=== PATIENT | female | born 1945 | race Caucasian/White ===

== ENCOUNTER 2024-01-31 13:26 | Emergency (ER) | payer MEDICARE, SELFPAY ==
[2024-01-31 13:28] VITALS: BP 208/90; PULSE 69; RESP 16; TEMP 36.9; O2SAT 98; BMI 24.1
--- OUTSIDE RECORDS SUMMARY | 2024-01-31 14:17 | XMS_ITS | Continuity of Care Document ---
Author Organization 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 - Active Needs OV for future refills or can get from PCP losartan 100 mg tablet take 1 tablet by oral route every day 100 MG - Active simvastatin 20 mg tablet take 1 tablet by oral route every day in the evening 20 MG - Active PreserVision AREDS 14,320 unit-226 mg-200 unit capsule take 1 tablespoon by oral route every day 1 tablespoon - Active Procedures Procedure Date Colonoscopy Flex; W/remov Les- 23 Ugi Endo; W/bx 1/mx Level Iv-surg Path Gross/micro 23 Ugi Endo; W/bx 1/mx Level Iv-surg Path Gross/micro 22 Colonoscopy Flex; W/remov Les- Level Iv-surg Path Gross/micro 20 Colonoscopy Flex; W/remov Les- 16 Colonoscopy Flex; W/bx 1/mx Level Iv-surg Path Gross/micro 16 Colonoscopy Flex; W/remov Les- 15 Colonoscopy W/Submucosal Injection Level Iv-surg Path Gross/micro 15 Colonoscopy Flex; W/remov Les- 10 Level Iv-surg Path Gross/micro 10 Level Iv-surg Path Gross/micro 10 Level Iv-surg Path Gross/micro 10 Colonoscopy Flex; W/remov Les- 07 Level Iv-surg Path Gross/micro 07 Level Iv-surg Path Gross/micro 07 Level Iv-surg Path Gross/micro 07 Level Iv-surg Path Gross/micro 07 Advance Directives Directive Yes / No Effective Date File Name No Information Encounters Encounter Description Practice Location Reason(s) For Visit Diagnoses Date Provider Providers Copied on Encounter [facility], [address] [address], [place], [place], [address], [place] tel:[phone] [facility] No Information 4 Ramiro Sanchez. [address], [place], [place], [id number] , [place]. tel: [phone] [facility], [address] [address], [place], [address], [place] tel:[phone] [facility] Epigastric pain 4 Jim Tanner. [address], [place], [place], [address] , [place]. tel: [phone] [facility], [address] [address], [place], [place], [address], [place] tel:[phone] [facility] No Information 3 Jim Tanner. [address] [facility] [address], [place], [place], [address] , [place]. tel: [phone] [facility], [address] [address], [place], [place], [address], [place] tel:[phone] [facility] GI Symptoms or Concerns (chief complaint) 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Family history of gastric cancerColorectal polypsDiverticulo sisEncounter for screening for malignant neoplasm of colonPersonal history of colonic polypsBenign neoplasm of ascending colonBarrett's esophagus without dysplasiaBenign neoplasm of ascending colon 3 Jim Tanner. [address] [facility] [address], [place], [place], [address] , [place]. tel:[phone] Referring Provider: Referral Self, USE FOR SELF REFERRALS. [facility], [address] [address], [place], [address], [place] tel:[phone] [facility] No Information 3 Ramiro Sanchez. [address] [facility] [address], [place], [place], [address] , [place]. tel:[phone] [facility], [address] [address], [place], [address], [place] tel:[phone] [facility] GI Symptoms or Concerns (chief complaint) Chronic anemiaEsophagitis 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Anemia, unspecifiedBarret t's esophagus without dysplasia 2 Jim Tanner. [address] [facility] [facility] [address], [place], [place], [address] , [place]. tel:[phone] Referring Provider: Adriana Santa MD F, [address], [place], [address]. tel:[phone] [facility], [address] [address], [place], [address], [place] tel:[phone] [facility] No Information 2 Ramiro Sanchez. [address] [facility] [address], [place], [place], [address] , [place]. tel: [phone] [facility], [address] [address], [place], [address], [place] tel:[phone] [facility] Colorectal polypsPersonal history of colonic polypsDiverticulo sis of colon without diverticulitisEnc ounter for screening for malignant neoplasm of colonBenign neoplasm of ascending colonBenign neoplasm of transverse colonBenign neoplasm of transverse colonBenign neoplasm of ascending colonPersonal history of colonic polyps 0 Shruti Paula. [address] [facility], [facility] [address], [place], [place], [address] , [place]. [phone] Referring Provider: [place] R, [address] [place], [address]. tel:[phone] [facility], [address] [address], [place], [address], [place] tel:[phone] [facility] No Information 0 Srhuti Paula. [address] [facility] [facility] [address], [facility] [address], [place], [place], [address] , [place]. tel:[phone] [facility], [address] [address], [place], [address], [place] tel:[phone] [facility] Colon polypsPersonal history of colonic polypsEncounter for screening for malignant neoplasm of colonBenign neoplasm of rectumPolyp of colonPersonal history of colonic polyps 6 Shruti Paula. [address] [facility] [facility], [facility] [address], [place], [place], [address] , [place]. tel:[phone] Referring Provider: Referral Self, USE FOR SELF REFERRALS. [facility], [address] [address], [place], [place], [address], [place] tel:[phone] [facility] Personal History Colon PolypsColonic polypsBenign Neoplasm ColonPersonal History Colon Polyps 5 Shruti Paula. [address] [facility], [facility] [address], [place], [place], [address] , [place]. tel: [phone] Referring Provider: [place] R, [address] [facility], [place], [address]. tel:[phone] [facility], [address] [address], [facility] [place], [address], [place] tel:[phone] [facility] External Referral 5 Frandy Molina. [address] [facility] [facility] [address], [place], [place], [address] , [place]. tel: [phone] Referring Provider: [place], [address] [facility], [place], [address]. tel:[phone] [facility], [address] [address], [facility] [place], [address], [place] tel:[phone] [facility] Personal History Colon PolypsColon Cancer ScreeningPersonal History Colon PolypsBenign Neoplasm Lg Bowel 0 Shruti Paula. [address] [facility], [place], [place], [address] , [place]. tel:[phone] Referring Provider: [place] R, [address] [facility], [place], [address]. tel:[phone] [facility], [address] [address], [facility] [place], [address], [place] tel:[phone] [facility] Colon Cancer ScreeningRectal Polyp/BenignFamil ial Polyposis 7 Shruti Paula. [address] [facility], [place], [place], [address] , [place]. tel:[phone] Referring Provider: [place] R, [address] [facility], [place], [address]. tel:[phone] Family History Family Member Type Diagnosis Age At Onset Mother Problem (finding) Colon polyps Brother Problem (finding) stomach cancer Mother Problem (finding) stomach cancer Son Problem (finding) Alive and well Father Problem (finding) gallbladder disease Mother Problem (finding) Diverticular disease Sister Problem (finding) gallbladder disease Immunizations Vaccine Date Status Comments SARS-COV-2 (COVID-19) vaccin e, mRNA, spike protein, LNP, bivalent booster, preservative free, 50 mcg/0.5 mL or 25 mcg/0.25 mL dose administered Note: [facility] bi-direct ional interface ; Source: Other Registry influenza, high-dose seasona l, quadrivalent, 0.7mL dose, preservative free administered Note: [facility] bi-direct ional interface ; Source: Other Registry SARS-COV-2 (COVID-19) vaccin e, mRNA, spike protein, LNP, bivalent booster, preservative free, 50 mcg/0.5 mL or 25 mcg/0.25 mL dose administered Note: [facility] bi-direct ional interface ; Source: Other Registry SARS-COV-2 (COVID-19) vaccin e, mRNA, spike protein, LNP, preservative free, 100 mcg/0.5mL dose or 50 mcg/0.25mL dose administered Note: [facility] bi -directional interface ; Source: Other Registry SARS-COV-2 (COVID-19) vaccin e, mRNA, spike protein, LNP, preservative free, 100 mcg/0.5mL dose or 50 mcg/0.25mL dose administered Note: [facility] bi -directional interface ; Source: Other Registry SARS-COV-2 (COVID-19) vaccin e, mRNA, spike protein, LNP, preservative free, 100 mcg/0.5mL dose or 50 mcg/0.25mL dose administered Note: [facility] bi -directional interface ; Source: Other Registry SARS-COV-2 (COVID-19) vaccin e, mRNA, spike protein, LNP, preservative free, 100 mcg/0.5mL dose or 50 mcg/0.25mL dose administered Note: [facility] bi -directional interface ; Source: Other Registry influenza, seasonal vaccine, quadrivalent, adjuvanted, 0.5mL dose, preservative free administered Note: [facility] bi-di rectional interface ; Source: Other Registry influenza, seasonal vaccine, quadrivalent, adjuvanted, .5mL dose, preservative free administered Note: [facility] bi-di rectional interface ; Source: Other Registry Havrix administered Note: [facility] bi-d irectional interface ; Source: Other Registry Pneumovax 23 administered Note: [facility] bi-d irectional interface ; Source: Other Registry Prevnar 13 administered Note: [facility] bi-d irectional interface ; Source: Other Registry tetanus and diphtheria toxoi ds, adsorbed, preservative free, for adult use (2 Lf of tetanus toxoid and 2 Lf of diphtheria toxoid) administered Note: [facility] bi-direct ional interface ; Source: Other Registry Influenza, seasonal, injectable administe red Note: [facility] bi- directional interface ; Source: Other Registry Payers Payer name Insurance type Covered democrat ID Authoriza ghazalawilberto(s) [employer] Medicare Advantage [id number] Social History Type Description Quantity Date Captured Comments Sex Female Smoking Status No Information Chief Complaint And Reason For Visit No Information Reason For Referral Reason For Referral No Information Plan Of Treatment Date Type Action Status Referral Ordered: EGD Appointment date/timeframe: 03/12/2024 ordered Appointment Lupe Jimenes History Of Present Illness Encounter Date Complaint History Of Prese nt Illness GI Symptoms or Concerns GI Symptoms or Concerns Functional Status Date Functional Assessmen t No Information Instructions Date Instruction Additional Infor mation Hemorrhoids (Internal) Related t o 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 Colon Cancer Prevention Related to 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 Colon Polyps Related to [place] tt's esophagus without dysplasia Diverticulosis/Diverticulitis Re lated to 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 high fiber diet Related to [place] tt's esophagus without dysplasia Diverticulosis/Diverticulitis Re lated to Colorectal polyps Colon Polyps Related to Color ectal polyps High Fiber Diet Related to Color ectal polyps Colon Cancer Prevention Related to Colorectal polyps Colon Polyps Related to Colon polyps Colon Cancer Prevention Related to Colon polyps Colon Polyps Related to Perso nal History Colon Polyps Colon Cancer Prevention Related to Personal History Colon Polyps Assessments Type Assessment Date No Information Patient Care Teams Name Effective Dates (start - stop) Status Members No Information
--- OUTSIDE RECORDS SUMMARY | 2024-01-31 14:17 | XMS_ITS | Clinical Summary ---
Author Organization [employer] [facility] Address [place], [place] [address] Care Team Providers Care Trimmer And Borer Machine Operator Name Role Phone Patricia Maldonado MD Primary Care Provider + Allergies Active Allergy Reactions Criticality Noted Date Comments Zinc Acetate Nausea Only 09/11/2022 Medications Medication Sig Dispensed Refills Start Date End Date Status VITAMINS A,C,D-HUTM-BCHHTN (Ocuvite PreserVision) 7,160 unit- 113 mg-100 unit tablet Take 1 Tablet by mouth once daily. Without the zinc 0 02/01/2022 Active zolpidem (AMBIEN) 5 mg tablet 1/4 tablet at night if needed 30 Tablet 1 02/01/2022 Active omeprazole (PRILOSEC) 20 mg Delayed-Release capsule take 1 capsule by mouth in the morning daily for Richardson's esophagus/reflu x. 08/03/2022 Active losartan (COZAAR) 100 mg tabletIndications:HTN (hypertension) Take 1 Tablet (100 mg) by mouth once daily. 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 2nd dose no later than 4 pm. 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 Repeat 1 year HTN (hypertension) 12/01/2021 Family history- stomach cancer 06/22/2019 Last Assessment & Plan: Mother in early 80's, brother early 50's Major depressive disorder, single episode in ful l remission 01/21/2011 Colon polyp 11/07/2010 Overview: 01/2023-7 tubular adenomas; repeat 2025. 08/2019: 3 adenoma; 7 hyperplastic repeat 2022. Multiple ( -- 2009) & (2006) adenomatous polyps. 2015: 2 tubular adenomas. 1 sessile adenoma. 2 hyperplastic polpys; 2016-1 tubular adenoma; 5 hyperplastic polyps Osteopenia 10/22/2010 Other and unspecified hyperlipidemia 10/22/2010 Environmental allergies 10/22/2010 Resolved Problems Problem Noted Date Diagnosed Date Resolved Date Thickened endometrium 04/27/20152018 Overview: US 03/2015 showed abnormal at 17 mm and endometrial polyp. Polyps removed and biopsy negative. 05/2015 uterus normal. Repeat done 08/2017 normal Anemia, unspecified 10/22/2010 08/23/19 18 Depression 10/22/2010 01/21/2011 Encounters Date Type Department Care Team Description 01/29/2024 9:30 AM CDT Ancillary Procedure [facility] [address] [place] [address] Arrived 01/29/2024 Travel 01/22/2024 Telephone [facility] [id number] [place] [id number] Patricia Maldonado MD Referral (CLOSED TE 01/21) 01/22/[address] [address] Patricia Maldonado MD Abdominal Pain 01/16/2024 Orders Only FRANCA CHAUDHARI [phone] Imaging, [place] <No scans attached> 01/12/2024 1:15 PM CDT Office Visit [facility] [id number] [place] [id number] Patricia Maldonado MD Medicare ANNUAL (subsequent) Visit; Back Pain; Fatigue 01/12/2024 Telephone [facility] [address] [place] [address] Patricia Maldonado MD Appointment Request (Echo) 01/12/2024 Travel 12/17/2023 Refill [facility] [address] [place] [address] Patricia Maldonado MD Refill Request (Simvastatin) from Last 3 Months Immunizations Name Administration Dates Next Due COVID-19 vaccine (Moderna 100mcg/0.5mL) PF, MDV 09/22/2020,08/25/2020 COVID-19 vaccine (Moderna 50 mcg/0.5mL) 12YO+ BIVALENT PF, MDV 11/22/2022,04/20/2022 Hepatitis A (Adult) 06/21/2019 Influenza Virus, Unspecified 04/16/2004 Influenza, High-dose Quadrivalent Inactivated ,05/09/2022 Influenza, IIV3 (Age >=3 years) 04/16/2004 Influenza, Inactivated AIIV4 (Age 65+ Years) Preserv Free 04/06/2020 Pneumococcal Poly,23-Valent (Pneumovax) 05/04/20 18 Pneumococcal conj 13-Valent (Prevnar 13) 016 Td (Age >=7 Years) 12/05/2004 Family History Medical History Relation Name Comments Stomach cancer Brother Diabetes Father Hypertension Father Stroke Father Hypertension Mother Stomach cancer Mother Alcohol/Drug Sister Blood Disease Son 1 Enrico PE after [facility] Son 1 Enrico Relation Name Status Comments Brother (Age 50's) stomach cancer Father (Age 89) stroke Mother (Age 83) stomach ca ncer Sister OD Son 1 Enrico Alive Son 2 (Age 14) Social History Tobacco Use Types Packs/Day Years Used Date Smoking Tobacco: Former Cigarettes 0.5 51.4 0 11/26/1971 - 11/25/2021 Smokeless Tobacco: Never Tobacco Cessation:Counseling Given: Not Answered Comments:patient smoking a few cigerettes a day since beginning of week, plans on stopping again after this pack 2/4/22 Alcohol Use Standard Drinks/Week Comments Yes 0 (1 standard drink = 0.6 oz pur e alcohol) 1-2 weekly PHQ-2 Answer Date Recorded PHQ-2 TOTAL SCORE 4 01/12/2024 Social Connections Answer Date Recorded Frequency of Communication with Friends and Fami ly 4 01/12/2024 Financial Resource Strain Answer Date R ecorded Difficulty of Paying Living Expenses 3 01/12/2024 Difficulty of Paying Living Expenses Not on file 01/12/2024 Food Insecurity Answer Date Recorded Worried About Running Out of Food in the Last Ye ar 1 01/12/2024 Transportation Needs Answer Date Record ed Lack of Transportation (Medical) 1 01/12/2024 Housing Stability Answer Date Recorded Unable to Pay for Housing in the Last Year 1 01/12/2024 Sex and Gender Information Value Date Recorded Sex Assigned at Not on file Gender Identity Not on file Sexual Orientation Not on file Obstetrics History Para Term AB IAB SAB Ectopic Multiple Livin g Live Births 2 2 2 1 Date Outcome GA Total Labor Labor/2nd/3rd Weight Sex Type Anes PTL Ilsa A1 A5 Name Clin Term M Term M Comments One son age 14 Last Filed Vital Signs Vital Sign Reading Time Taken Comments Blood Pressure 144/72 01/12/2024 1:12 PM CDT Pulse 76 01/12/2024 1:09 PM CDT Temperature 36.4 ??C (97.6 ??F) 01/25/2022 1:23 PM CD T Respiratory Rate 16 01/25/2022 1:23 PM CDT Oxygen Saturation 100% 01/25/2022 1:23 PM CDT Inhaled Oxygen Concentration - - Weight 62 kg (136 lb 11.2 oz) 01/12/2024 1:09 PM CDT Height 157.5 cm (5' 2) 01/12/2024 1:09 PM CDT Body Mass Index 25 01/12/2024 1:09 PM CDT Plan of Treatment Upcoming Encounters Date Type Department Care Team (Late st Contact Info) Description 02/20/2024 2:00 PM CDT Ancillary Procedure [facility] [address] [facility] [address] [place] [address] 04/01/2024 2:30 PM CDT Office Visit [facility] [address] [place] [address] Delonte Parker MD [address] [place] [address] Health Maintenance Due Date Last Done Comments Tdap 1956 Hepatitis C screening for ag e 18-79 1964 Zoster (shingles) series for age 50+ (1 of 2) 1996 DEXA/DXA scan for age 65+ 2011 11/28/2006 Tetanus booster 12/05/2014 12/05/2004 COVID-19 vaccine series ( season) 2023 04/28/2023, 11/22/2022, 04/20/2022, Additional history exists Low Dose CT (for lung CA) ag e 50-80 01/28/2024 01/27/2023, 01/25/2022 Influenza for age 65+ 03/14/2024 04/28/2023 , 05/09/2022, 04/06/2020, Additional history exists BMI (ht and wt on same day) for age 18+ 01/11/2025 01/12/2024, 01/03/2023, 02/01/2022, Additional history exists Depression screening for age 12+ 01/11/2025 01/12/2024, 01/12/2024, 01/03/2023, Additional history exists Medicare Wellness for age 65+ 01/12/2025, 01/03/2023, 11/28/2021, Additional history exists Pneumococcal series for age 65+ Completed 8, 02/12/2016 Fecal testing non-DNA (FIT,FOBT,iFOBT) for age 45-75 Discontinued 01/10/2022 Procedures Procedure Name Priority Date/Time Associated Diagnosis Comments XR MAMMO NINA BILAT SCREEN Routine 01/16/2024 11:48 AM CDT Screening breast examination IRON PLUS IRON BINDING CAP Routine 01/12/2024 2:29 PM CDT Anemia of chronic disease CBC W PLT NO DIFF Routine 01/12/2024 2:2 9 PM CDT Anemia of chronic disease BASIC METABOLIC PANEL Routine 01/12/2024 2:29 PM CDT HTN (hypertension) ME SPMTRY W/VC EXPIRATORY PRITI W/WO MXML VOL VNTJ Routine 01/12/2024 12:00 AM CDT ROTHMAN (dyspnea on exertion) CT CHEST SCREENING LOW DOSE WO CONTRAST Routine 01/27/2023 11:01 AM CDT Encounter for screening for lung cancer Former smoker OCCULT BLOOD IFOBT STOOL Today 01/10/2022 9:00 AM CDT Anemia of unknown etiology Encounter for screening for malignant neoplasm of rectum SCAN-BONE DENSITOMETRY DEXA 11/28/2006 12:00 AM CDT from Last 3 Months or Most Recently Relevant to Health Maintenance Results * XR MAMMO NINA BILAT SCREEN (01/16/2024 11:48 AM CDT) Anatomical Region Laterality Modality BREASTS, Breast Left, Breast Right Bilateral Mammography 01/16/2024 11:4 8 AM CDT Impressions 01/19/2024 10:05 AM CDT IMPRESSION: No concerning mammographic findings. Recommend routine annual screening mammography. When performed, computer-aided detection was used in the interpretation of this study. ACR BI-RADS Category 1: Negative. A lay language report of this examination will be mailed to the patient. LIFETIME BREAST CANCER RISK ASSESSMENT SCORE: Lifetime risk of developing breast cancer is 3.4% calculated using the Tere Model and information provided by the patient at the time of screening. The average lifetime risk for developing breast cancer is 12.9% for women born in the [place]. For patients with a lifetime breast cancer risk assessment score of less than 20%, annual screening mammography is recommended. For patients with a lifetime risk of greater than 20%, annual screening mammography supplemented with annual Breast MRI is recommended. Patients in this category are encouraged to discuss this recommendation with their healthcare provider to determine if Breast MRI is appropriate and if so, to obtain a referral and confirm coverage with their health insurance. Recommendations are based on the [employer] Appropriateness Criteria. Patients with a BI-RADS category of 0 should follow the recommendations for further evaluation before considering supplemental screening. Narrative 01/19/2024 10:05 AM CDT EXAM: MAMMOGRAM SCREENING NINA BILATERAL LOCATION: [facility] DATE: 01/16/2024 INDICATION: Asymptomatic. Screening Mammogram. COMPARISON: 11/14/22, 08/02/21 BREAST DENSITY: There are scattered areas of fibroglandular density. FINDINGS: Tomosynthesis craniocaudal and mediolateral oblique views were obtained. There is no evidence for spiculated masses, architectural distortion, asymmetry or suspicious calcifications. Procedure Note Naif Hennessy MD - 01/19/2024 EXAM: MAMMOGRAM SCREENING NINA BILATERAL LOCATION: [facility] DATE: 01/16/2024 INDICATION: Asymptomatic. Screening Mammogram. COMPARISON: 11/14/22, 08/02/21 BREAST DENSITY: There are scattered areas of fibroglandular density. FINDINGS: Tomosynthesis craniocaudal and mediolateral oblique views were obtained. There is no evidence for spiculated masses, architectural distortion, asymmetry or suspicious calcifications. IMPRESSION: IMPRESSION: No concerning mammographic findings. Recommend routine annual screening mammography. When performed, computer-aided detection was used in the interpretation of this study. ACR BI-RADS Category 1: Negative. A lay language report of this examination will be mailed to the patient. LIFETIME BREAST CANCER RISK ASSESSMENT SCORE: Lifetime risk of developing breast cancer is 3.4% calculated using the Tere Model and information provided by the patient at the time of screening. The average lifetime risk for developing breast cancer is 12.9% for women born in the . For patients with a lifetime breast cancer risk assessment score of less than 20%, annual screening mammography is recommended. For patients with a lifetime risk of greater than 20%, annual screening mammography supplemented with annual Breast MRI is recommended. Patients in this category are encouraged to discuss this recommendation with their healthcare provider to determine if Breast MRI is appropriate and if so, to obtain a referral and confirm coverage with their health insurance. Recommendations are based on the [employer] Appropriateness Criteria. Patients with a BI-RADS category of 0 should follow the recommendations for further evaluation before considering supplemental screening. Patricia Maldonado MD MAMMO * IRON PLUS IRON BINDING CAP (01/12/2024 2:29 PM CDT) Pathologist [facility] IRON 77 37 - 145 ug/dL 01/13/2024 3:26 AM CDT [facility] UIBC (UNSATURATED) 223 112 - 347 ug/dL 01/13/2024 3:26 AM CDT [facility] IRON BINDING CAPACITY 300 250 - 400 ug/dL 01/13/2024 3:26 AM CDT [facility] IRON,% SATURATION 26 14 - 50 % 01/13/2024 3:26 AM CDT [facility] Blood BLOOD SPECIMEN / Unknown Venipuncture / Unknown 01/12/2024 2:29 PM CDT 01/12/2024 2:29 PM CDT Patricia Maldonado MD CHEMISTRY [facility] [address] [place] [phone], * (ABNORMAL) CBC W PLT NO DIFF (01/12/2024 2:29 PM CDT) [facility] WHITE BLOOD COUNT 10.6 4.5 - 11.0 thou/cu mm 01/12/2024 2:33 PM CDT [facility] RED BLOOD COUNT 3.59(L) 4.00 - 5.20 mil/cu mm 01/12/2024 2:33 PM CDT [facility] HEMOGLOBIN 11.4(L) 12.0 - 16.0 g/dL 01/12/2024 2:33 PM CDT [facility] HEMATOCRIT 34.7 33.0 - 51.0 % 01/12/2024 2:33 PM CDT [facility] MCV 97 80 - 100 fL 01/12/2024 2:33 PM CDT [facility] MCH 31.8 26.0 - 34.0 pg 01/12/2024 2:33 PM CDT [facility] MCHC 32.9 32.0 - 36.0 g/dL 01/12/2024 2:33 PM CDT [facility] RDW 12.1 11.5 - 15.5 % 01/12/2024 2:33 PM CDT [facility] PLATELET COUNT 282 140 - 440 thou/cu mm 01/12/2024 2:33 PM CDT [facility] MPV 10.4 6.5 - 11.0 fL 01/12/2024 2:33 PM CDT [facility] Blood BLOOD SPECIMEN / Unknown Venipuncture / Unknown 01/12/2024 2:29 PM CDT 01/12/2024 2:29 PM CDT Patricia Maldonado MD HEMATOLOGY [facility] [address] [place] [address] * (ABNORMAL) BASIC METABOLIC PANEL (01/12/2024 2:29 PM CDT) SODIUM 140 136 - 145 mmol/L 01/13/2024 3:26 AM T [facility] POTASSIUM 4.6 3.5 - 5.1 mmol/L 01/13/2024 3:26 AM T [facility] CHLORIDE 106 98 - 107 mmol/L 01/13/2024 3:26 AM T [facility] CO2,TOTAL 23 22 - 29 mmol/L 01/13/2024 3:26 AM T [facility] ANION GAP 11 5 - 18 01/13/2024 3:26 AM T [facility] GLUCOSE 104(H) 70 - 99 mg/dL 01/13/2024 3:26 AM T [facility] CALCIUM 9.1 8.8 - 10.2 mg/dL 01/13/2024 3:26 AM T [facility] BUN 29(H) 8 - 23 mg/dL 01/13/2024 3:26 AM T [facility] CREATININE 1.04(H) 0.50 - 0.90 mg/dL 01/13/2024 3:26 AM CDT [facility] BUN/CREAT RATIO 28(H) 10 - 20 3:26 AM CDT [facility] eGFR 55(L) >90 mL/min/1.7 3m2 01/13/2024 3:26 AM CDT [facility] Comment:As of 2021, eG FR is calculated by the CKD-EPI creatinine equation without race adjustment. ??eGFR can be influenced by muscle mass, exercise, and diet. ??The reported eGFR is an estimation only and is only applicable if the renal function is stable. Blood BLOOD SPECIMEN / Unknown Venipuncture / Unknown 01/12/2024 2:29 PM CDT 01/12/2024 2:29 PM CDT Patricia Maldonado MD CHEMISTRY [facility] [address] [place] [id number], * ME SPIROMETRY W VITAL CAPACITY (01/12/2024 12:00 AM CDT) Patricia Maldonado MD [facility] - [facility] * CT CHEST SCREENING LOW DOSE WO CONTRAST (01/27/2023 11:01 AM CDT) Anatomical Region Laterality Modality Computed Tomogra phy Impressions 01/27/2023 11:35 AM CDT Negative for lung cancer screening purposes. LUNG-RADS CATEGORY 1: Negative. RADIOLOGIST RECOMMENDATION: Continue annual screening with low-dose CT chest in 12 months. Please note that all CT scans at this facility use dose modulation, iterative reconstruction and/or weight-based dosing when appropriate to reduce radiation dose to as low as reasonably achievable. ?? Dictated by: Fan Hall MD @01/27/2023 11:11:39 AM/ DEANGELO:jj Narrative 01/27/2023 11:35 AM CDT For Patients: As a result of the 21st Century Cures Act, medical imaging exams and procedure reports are released immediately into your electronic medical record. ??You may view this report before your referring provider. ?? If you have questions, please contact your health care provider. CT CHEST SCREENING LOW-DOSE WITHOUT CONTRAST, 01/27/2023 INDICATION: Lung cancer screening. History of smoking. High-risk patient. TECHNIQUE: Low-dose lung cancer screening non-contrast CT chest. Dose reduction techniques were used. COMPARISON: 01/25/2022. FINDINGS: NODULES: None. LUNGS AND PLEURA: Normal. MEDIASTINUM: Normal. CORONARY ARTERY CALCIFICATION: Present. LIMITED UPPER ABDOMEN: Vascular calcification in the proximal abdominal aorta. No splenomegaly. Normal adrenal glands. MUSCULOSKELETAL: Normal. Patricia Maldonado MD CT * OCCULT BLOOD IFOBT STOOL (01/10/2022 9:00 AM CDT) STOOL BLOOD ,IFOBT Negative Negative 01/10/2022 11:31 AM CDT [facility] Stool STOOL SPECIMEN / Unknown Non-Blood / Unknown 01/10/2022 9:00 AM CDT 01/10/2022 11:08 AM CDT Adriana Santa MD LABORATORY Performing Organization Address City/State/[facility] [place] [address] * SCAN-BONE DENSITOMETRY DEXA (11/28/2006 12:00 AM CDT) Anatomical Region Laterality Modality Other Narrative Procedure Note Scanner - 11/28/2006 12:00 AM CDT Scanner OTHER from Last 3 Months or Most Recently Relevant to Health Maintenance Advance Directives * Full Code (Latest Code Status on File) Date Activated Date Inactivated Comments 07/28/2015 6:07 AM 07/28/2015 12:26 PM Question Answer Comments Code Status Discussion: Not Discussed Care Teams Trimmer And Borer Machine Operator Relationship Specialty [place] [address] [place] [address] PCP - General Family Practice 10/17/10
--- OUTSIDE RECORDS SUMMARY | 2024-01-31 14:18 | XMS_ITS | Continuity of Care Document ---
Author Organization [facility] Address [address] [address] [place] [address] Phone Care Team Providers Care Printing Machinist Name Role Phone Ramiro Noe MD, Daniel [...] Diagnoses Date Provider Providers Copied on Encounter [facility], [address] [address], [place], [place], [id number], [place] tel:[phone] [facility] No Information 4 Ramiro Sanchez. [address] [facility], [place], [place], [address] , [place]. tel: [phone] [facility], [address] [address], [place], [place], [address], [place] tel:[phone] [facility] Epigastric pain 4 Jim Tanner. [address] [facility], [place], [place], [id number] , [place]. tel: [phone] [facility], [address] [address], [place], [place], [address], [place] tel:[phone] [facility] No Information 3 Jim Tanner. [address] [facility], [place], [place], [id number] , [place]. tel: [phone] [facility], [address] [address], [place], [address], [place] tel:[phone] [facility] GI Symptoms or Concerns (chief complaint) 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Family history of gastric cancerColorectal polypsDiverticulo sisEncounter for screening for malignant neoplasm of colonPersonal history of colonic polypsBenign neoplasm of ascending colonBarrett's esophagus without dysplasiaBenign neoplasm of ascending colon 3 Jim Tanner. [address] [facility], [place], [place], [address] , [place]. tel:[phone] Referring Provider: Referral Self, USE FOR SELF REFERRALS. [facility], [address] [address], [place], [place], [address], [place] tel:[phone] [facility] No Information 3 Ramiro Sanchez. [address] [facility], [place], [place], [address] , [place]. tel:[phone] [facility], [address] [address], [place], [place], [address], [place] tel:[phone] [facility] GI Symptoms or Concerns (chief complaint) Chronic anemiaEsophagitis 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Anemia, unspecifiedBarret t's esophagus without dysplasia 2 Jim Tanner. [address] [facility], [place], [place], [address] , [place]. tel:[phone] Referring Provider: Adriana Santa MD F, [address], [place], [address]. tel:[phone] [facility], [address] [address], [place], [place], [address], [place] tel:[phone] [facility] No Information 2 Ramiro Sanchez. [address] [facility], [place], [place], [address] , [place]. tel: [phone] [facility], [address] [address], [place], [id number], [place] tel:[phone] [facility] Colorectal polypsPersonal history of colonic polypsDiverticulo sis of colon without diverticulitisEnc ounter for screening for malignant neoplasm of colonBenign neoplasm of ascending colonBenign neoplasm of transverse colonBenign neoplasm of transverse colonBenign neoplasm of ascending colonPersonal history of colonic polyps 0 Shruti Paula. [address] [facility], [facility] [address], [place], [place], [address] , [place]. [phone] Referring Provider: Patricia Maldonado MD R, [address] [place], [address]. tel:[phone] [facility], [address] [address], [place], [address], [place] tel:[phone] [facility] No Information 0 Shruti Paula. [address] [facility], [facility] [address], [place], [place], [address] , [place]. tel:[phone] [facility], [address] [address], [place], [address], [place] tel:[phone] [facility] Colon polypsPersonal history of colonic polypsEncounter for screening for malignant neoplasm of colonBenign neoplasm of rectumPolyp of colonPersonal history of colonic polyps 6 Shruti Paula. [address] [facility], [facility] [address], [place], [place], [address] , [place]. tel:[phone] Referring Provider: Referral Self, USE FOR SELF REFERRALS. [facility], [address] [address], [place], [place], [id number], [place] tel:[phone] [facility] Personal History Colon PolypsColonic polypsBenign Neoplasm ColonPersonal History Colon Polyps 5 Shruti Paula. [address] [facility], [facility] [address], [place], [place], [address] , [place]. tel: [phone] Referring Provider: Patricia Maldonado MD R, [address] [facility], [place], [address]. tel:[phone] [facility], [address] [address], [facility] [place], [address], [place] tel:[phone] [facility] External Referral 5 Frandy Molina. [address] [facility], [place], [place], [address] , [place]. tel: [phone] Referring Provider: Patricia Maldonado MD R, [address] [facility], [place], [address]. tel:[phone] [facility], [address] [address], [facility] [place], [address], [place] tel:[phone] [facility] Personal History Colon PolypsColon Cancer ScreeningPersonal History Colon PolypsBenign Neoplasm Lg Bowel 0 Shruti Paula. [address] [facility], [place], [place], [address] , [place]. tel:[phone] Referring Provider: Patricia [place]ado [place] R, [address] [facility], [place], [address]. tel:[phone] [facility], [address] [address], [facility] [place], [id number], [place] tel:[phone] [facility] Colon Cancer ScreeningRectal Polyp/BenignFamil ial Polyposis 7 Shruti Paula. [address] [facility], [place], [place], [address] , [place]. tel:[phone] Referring Provider: Patricia Maldonado [place] R, [address] [facility], [place], [address]. 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
--- NOTE | 2024-01-31 14:39 | ED.GENADULT ---
HPI - General Adult General Chief complaint: Hypertension Stated complaint: blood pressure issues Time Seen by Provider: 01/31/24 13:30 Source: patient and RN notes reviewed Mode of arrival: ambulatory Limitations: no limitations History of Present Illness HPI narrative: Patient is a 78-year-old woman who saw her primary doctor at the [facility] in [place] on January 11. She says she has been on losartan for quite some time for high blood pressure, she says her blood pressures tend to run in the 140s but she notes that it is always elevated when she gets it checked in a medical setting. At that visit, she relates some feelings of fatigue, increased stressors, and loss of enjoyment of things that she typically would enjoy, so Wellbutrin was started at that time. She was started on 100 mg daily and has not increased the dose. She checked her blood pressure this morning and it was in the 180s which is very unusual for her. She says she was not sure she should come in or not but decided to just get it checked out. She describes a mild headache which she has had on and off for days, no severe headache, no chest pain, difficulty breathing, vomiting, neurologic changes or other concerning symptoms. She does feel like she has had some increased anxiety on the Wellbutrin. She denies severe depression symptoms or suicidal thoughts, she has had 1 good friend be diagnosed with Parkinson's recently and another friend of 70 years recently, so she has had some unusual stressors. Related Data Home Medications ?Medication ?Instructions ?Recorded ?Confirmed bupropion HCl 100 mg tablet,12 hr mg PO 01/31/24 sustained-release losartan 50 mg tablet 50 mg PO DAILY 01/31/24 01/31/24 omeprazole 20 mg capsule,delayed 20 mg PO QAM 01/31/24 01/31/24 release simvastatin 20 mg tablet 20 mg PO QPM 01/31/24 01/31/24 vitamins A,C,G-ixke-dcxpke 4,296 2 cap PO DAILY 01/31/24 01/31/24 mcg-226 mg-90 mg capsule (PreserVision AREDS) Allergies Allergy/AdvReac Type Severity Reaction Status Date / Time zinc AdvReac Intermediate Nausea Verified 01/31/24 13:34 Review of Systems Status of ROS: Reports: 10 or more systems reviewed and unremarkable except as noted in History and below PFSH PFSH Social History Smoking Status: Unknown if ever smoked Exam Narrative: Exam Narrative: Vital signs as noted above. In general, an alert, well-appearing patient. Head: Normocephalic, atraumatic. Eyes: Pupils are equal reactive. Extraocular movements are full. Conjunctivae are normal. ENT: Mucous membranes are moist. Neck: Supple without lymphadenopathy. Heart: Regular rate and rhythm. She has a faint systolic murmur heard best at the right sternal border. Lungs: Clear bilaterally. No increased work of breathing, crackles or wheezes. Abdomen: Soft and nontender. No organomegaly. Extremities: Well perfused. No edema. No calf tenderness. Pulses intact. Neurologic: Patient is alert and oriented to person and place. Speech is fluent. Face is symmetric. Moves all extremities equally. Affect: Normal. Skin: Warm and dry. Well perfused. Const: Vital Signs, click to edit/add: Vital Signs - 24 hr 01/31/24 13:28 Temperature 98.4 F Pulse Rate [Pulse Oximeter] 69 Respiratory Rate 16 Blood Pressure [Ri ght Upper Arm] 208/90 H Pulse Oximetry 98 Oxygen Delivery Me thod Room Air Course Course ED Course: I had a lengthy conversation about all of this with her. She does not have any significant symptoms, I do not think she needs any kind of workup today. We discussed observation for a few days verses tapering off of the Wellbutrin and she would prefer to discontinue the Wellbutrin. Given that she is on the lowest available dose, I have suggested that she just go to 1 tablet every other day for a few days and then she can discontinue. I have asked her to check her blood pressure couple times a day over the next week or so and to discuss all this with her primary doctor. Reviewed with her that it very well may be antidepressant is a good idea for her, but I think we should clarify whether the Wellbutrin is contributing to her higher blood pressure numbers before deciding whether to continue that as a medication or try something different. She is comfortable with that. Certainly she develops severe symptoms, return to the emergency department at any time. Vital Signs Vital signs: Initial Vital Signs Temperature 98.4 F 01/31/24 13:28 Temperature Source Temporal Artery Scan 01/31/24 13:28 Pulse Rate 69 01/31/24 13:28 Pulse Rhythm Regular 01/31/24 13:28 Pulse Strength 3+ Normal 01/31/24 13:28 Respiratory Rate 16 01/31/24 13:28 Blood Pressure 208/90 H 01/31/24 13:28 Blood Pressure Mean 129 H 01/31/24 13:28 Blood Pressure Position Sitting 01/31/24 13:28 Pulse Oximetry 98 01/31/24 13:28 Oxygen Delivery Method Room Air 01/31/24 13:28 Vital Signs Temperature 98.4 F 01/31/24 13:28 Pulse Rate 69 01/31/24 13:28 Respiratory Rate 16 01/31/24 13:28 Blood Pressure 208/90 H 01/31/24 13:28 Pulse Oximetry 98 01/31/24 13:28 Oxygen Delivery Method Room Air 01/31/24 13:28 Temperature 98.4 F 01/31/24 13:28 Pulse Rate 69 01/31/24 13:28 Respiratory Rate 16 01/31/24 13:28 Blood Pressure 208/90 H 01/31/24 13:28 Pulse Oximetry 98 01/31/24 13:28 Oxygen Delivery Method Room Air 01/31/24 13:28 Discharge Plan Discharge Clinical Impression: HBP (high blood pressure) Patient Disposition: Home, Self-Care Condition: Stable Instructions: Hypertension in the Older Adult (ED) Additional Instructions: You are on the smallest available dose of Wellbutrin, so I am not able to prescribe a smaller dosage to do a true taper. What we can do is have you take 100 mg every other day for the next 6 days and then stop. Please call your clinic doctor on Friday, let her know about your blood pressure and that we elected to discontinue the Wellbutrin. Check your blood pressure once or twice a day over the next week so that you can relay this your primary doctor. For new symptoms such as severe headache, vomiting, chest pain, difficulty breathing or other acute worsening, return at any time. I do not anticipate that you will have any significant symptoms discontinuing the Wellbutrin, but if you feel that it is not going well, return or see your doctor. Prescriptions: No Action losartan 50 mg tablet 50 mg PO DAILY bupropion HCl 100 mg tablet sustained-release 12 hr PO simvastatin 20 mg tablet 20 mg PO QPM omeprazole 20 mg capsule,delayed release(DR/EC) 20 mg PO QAM PreserVision AREDS 4,296 mcg-226 mg-90 mg capsule 2 cap PO DAILY Follow Up/Referrals: Provider,Not a Local [Primary Care Provider] - Stand Alone Forms: [employer] Info Instructions
== END 2024-01-31 14:33 | disposition home or self-care (01) ==
PROVIDERS: Emergency Provider Emergency Medicine
DX: R03.0 Elevated blood-pressure reading, without diagnosis of hypertension (principal)
CPT/HCPCS: 99282; 99283

== ENCOUNTER 2024-02-09 14:45 | Outpatient (RCR) | payer MEDICARE, SELFPAY | END 2024-06-08 23:59 | disposition home or self-care (01) | PROVIDERS: Visit Provider Family Medicine | DX: M54.41 Lumbago with sciatica, right side (principal); G89.29 Other chronic pain; Z51.89 Encounter for other specified aftercare | CPT/HCPCS: 97110; 97140; 97162 ==